=== PATIENT | female | born 1990 | race Hispanic/Latino ===

== ENCOUNTER 2022-02-18 14:20 | Emergency (ER) | payer SELFPAY ==
--- NOTE | ~2022-02-18 | CT_ITS ---
EXAMINATION: CT abdomen pelvis wo con DATE: 02/18/2022 17:09 INDICATION: eval kidney stone TECHNIQUE: Computed tomography (CT) of the abdomen and pelvis was performed without intravenous contr ast. Automated exposure control and iterative reconstruction technique were employed. The dose-length product was 574.39 mGy-cm. COMPARISON: None. FINDINGS: Lower thorax: Unremarkable Liver: Normal. Biliary/Gallbladder: Gallbladder is normal. No bile duct dilation. Pancreas: No mass or duct dilation. Spleen: Normal. Adrenals:No mass. Kidneys: No mass, stone, or hydronephrosis. GI tract: No small or large bowel dilation. Normal appendix. Mesentery/Peritoneum: No ascites, mass, or free air. Retroperitoneum: No mass. Pelvis: Bladder wall thickening and inflammation, remaining pelvic organs are within normal limits. Soft Tissues: Gluteal injection granulomas. Bones: No acute osseous finding. IMPRESSION: CT findings suggestive of cystitis. Otherwise, no acute abdominopelvic process detected. Specifically , there is no CT evidence of nephrolithiasis or obstructive uropathy. Reviewed, dictated and finalized at location K. IMPRESSION: CT findings suggestive of cystitis. Otherwise, no acute abdominopelvic process detected. Specifically, there is no CT evidence of nephrolithiasis or obstructi ve uropathy.
[2022-02-18 14:25] VITALS: BP 107/65; PULSE 68; RESP 16; TEMP 36.3; O2SAT 100
[2022-02-18 15:05] LABS: Basophils Absolute Auto 0.1 K/mm3 (0.0-0.1); Basophils Percent Auto 0.5 % (0.2-1.2); Eosinophils Absolute Auto 0.3 K/mm3 (0-0.3); Eosinophils Percent Auto 2.7 % (0-4.4); Hemoglobin 11.9 g/dL (12.0-15.0); Immature Granulocyte Absolute 0.05 K/mm3 (0.00-0.031); Immature Granulocyte Percent A 0.5 % (0-0.5); Lymphocytes Absolute Auto 3.42 K/mm3 (0.9-3.2); Lymphocytes Percent Auto 34.1 % (18.3-44.2); Mean Corpuscular HGB Conc 32.2 g/dl (32-36); Mean Corpuscular Hemoglobin 27.7 pg (26-34); Mean Corpuscular Volume 86.2 fl (80-100); Mean Platelet Volume 10.4 fl (7.4-10.4); Monocytes Absolute Auto 0.5 K/mm3 (0.1-0.6); Monocytes Percent Auto 5.4 % (2.6-8.5); Neutrophils Absolute Auto 5.7 K/mm3 (1.3-6.7); Neutrophils Percent Auto 56.8 % (45.5-73.1); Platelet Count Result 368 k/mm3 (150-375); Red Blood Count 4.29 M/mm3 (4.2-5.4); Red Cell Distribution Width 14.5 % (11.5-14.5)
[2022-02-18 15:09] LABS: Appearance Urine Clear (Clear); Bilirubin Urine Negative (Negative); Blood Urine 2+ (Negative); Color Urine Yellow (Yellow); Glucose Urine UA Negative (Negative); Ketones Urine Negative (Negative); Leukocyte Esterase Ur Negative LEU/UL (Negative); Nitrate Urine Negative (Negative); Protein Urine Negative (Negative); Specific Grav Ur 1.025 (1.001-1.035); Urobilinogen Urine 0.2 mg/dL (<2.0); pH Urine 5.5 (5.0-9.0)
[2022-02-18 15:14] LABS: Alanine Aminotransferase 28 U/L (6-35); Albumin Level 4.6 g/dL (3.5-5.1); Alkaline Phosphatase 96 U/L (38-126); Anion Gap 9 mmol/L (8-16); Aspartate Amino Transferase 28 U/L (14-36); Bilirubin,Total 0.4 mg/dL (0.2-1.3); Blood Urea Nitrogen 10 mg/dL (7-17); Calcium 8.6 mg/dL (8.4-10.2); Carbon Dioxide 26 mmol/L (22-30); Chloride 104 mmol/L (98-107); Estimated Glomerular Filt Rate > 60; Glucose 93 mg/dL (65-110); Lipase 83 U/L (23-300); Potassium 3.7 mmol/L (3.4-5.0); Sodium 139 mmol/L (137-145)
[2022-02-18 15:19] LABS: Mucus Urine Rare /lpf; Squamous Epithelial Cell Urine Occasional /hpf (Few)
[2022-02-18 15:20] LABS: Add Urine Microscopic? YES
--- NOTE | 2022-02-18 16:21 | ED.GENADULT ---
HPI - General Adult General Chief complaint: Urogenital-Female Stated complaint: chills, lower back pain, hematuria Time Seen by Provider: 02/18/22 15:51 History of Present Illness HPI narrative: Patient is Chinese speaking. [employer]imator was used. [facility] #[id number] This is a 31-year-old female with history of kidney stones presenting ED with chief complaint of lower back pain. Patient says she has been having pain for the last week It is 10/10 intensity, radiates into her left groin, and comes and goes. There are no exacerbating alleviating factors. It is associated with fever and chills. She has also had dysuria and increased urinary urgency. Patient has a history of kidney stones in the past. Related Data Allergies Allergy/AdvReac Type Severity Reaction Status Date / Time No Known Allergies Allergy Verified 02/18/22 15:46 Review of Systems Review of Systems: CONSTITUTIONAL: Denies night sweats. EYES: No eye pain ENT: Denies rhinorrhea CARDIOVASCULAR: Denies palpitations RESPIRATORY: Denies hemoptysis GASTROINTESTINAL: Denies hematemesis GENITOURINARY: Denies hematuria. SKIN: Denies rash MUSCULOSKELETAL: Denies myalgia. NEUROLOGIC: Denies weakness. PSYCHIATRIC: Denies delusions [facility] Social History Social History (Updated 02/18/22 @ 16:24 by Gómez Salgado MD) Social History: patient denies use of tobacco, drugs or alcohol Exam Narrative: APPEARANCE: No apparent distress. Head atraumatic. EYES: PERRLA/EOMI, NOSE: Normal no drainage NECK: Supple, Trachea midline RESPIRATORY: CTAB, No increased work of breathing. CARDIOVASCULAR: S1S2 appreciated ABDOMINAL: Soft, nontender, nondistended, mild tenderness to palpation on the left flank. No CVA tenderness,no guarding or rebound MUSCULOSKELETAl: No obvious deformities NEURO: Alert. Moving 4/4 extremities SKIN:: Warm, dry. Normal color PSYCHIATRIC: Normal affect Course Vital Signs Vital signs: Vital Signs Temperature 97.3 F L 02/18/22 14:25 Pulse Rate 68 02/18/22 14:25 Respiratory Rate 16 02/18/22 14:25 Blood Pressure 107/65 02/18/22 14:25 Pulse Oximetry 100 02/18/22 14:25 Oxygen Delivery Room Air 02/18/22 14:25 Temperature 97.3 F L 02/18/22 14:25 Pulse Rate 68 02/18/22 14:25 Respiratory Rate 16 02/18/22 14:25 Blood Pressure 107/65 02/18/22 14:25 Pulse Oximetry 100 02/18/22 14:25 Oxygen Delivery Room Air 02/18/22 14:25 Medical Decision Making MDM Narrative Medical decision making narrative: this is a 31-year-old Chinese-speaking female presenting ED with flank pain. She has a history of kidney stones. CT abdomen pelvis has been ordered. She has been given Toradol and [place] for pain control. Urinalysis was positive for 6-10 rbc's and 4-6 white blood cells. She is symptomatic. UTI will be treated. CT showed evidence of cystitis but no evidence of nephrolithiasis. Patient will be discharged with a course of Keflex. She can follow up with her primary care physician. Vital Signs Vital Signs: Vital Signs Temperature 97.3 F L 02/18/22 14:25 Pulse Rate 68 02/18/22 14:25 Respiratory Rate 16 02/18/22 14:25 Blood Pressure 107/65 02/18/22 14:25 Pulse Oximetry 100 02/18/22 14:25 Oxygen Delivery Room Air 02/18/22 14:25 Temperature 97.3 F L 02/18/22 14:25 Pulse Rate 68 02/18/22 14:25 Respiratory Rate 16 02/18/22 14:25 Blood Pressure 107/65 02/18/22 14:25 Pulse Oximetry 100 02/18/22 14:25 Oxygen Delivery Room Air 02/18/22 14:25 Lab Data Result diagrams: 02/18/22 14:42 02/18/22 14:42 Labs: Lab Results 02/18/22 02/18/22 02/18/22 Range/Units 14:42 14:42 14:50 WBC 10.0 (4.5-10.0) K/mm3 RBC 4.29 (4.2-5.4) M/mm3 Hgb 11.9 L (12.0-15.0) g/dL Hct 37.0 (37.0-47.0) % MCV 86.2 (80-100) fl MCH 27.7 (26-34) pg MCHC 32.2 (32-36) g/dl RDW 14.5 (11.5-14.5) % Plt Count 368
[2022-02-18] MEDS: KETOROLAC 15 MG/ML VIAL (*BKC) IV PUSH (16:54)
[2022-02-18] MEDS: HYDROcodone/acetaminophen (*CRX) 5-325 MG TABLET 2 TAB PO (16:54)
--- NOTE | 2022-02-18 16:58 | PC.NURSE ---
Pt to CT.
[2022-02-18] MEDS: CEPHALEXIN 500 MG CAPSULE PO (17:52)
[2022-02-18 17:56] VITALS: BP 97/65; PULSE 64; RESP 16; O2SAT 100
== END 2022-02-18 17:59 | disposition home or self-care (01) ==
PROVIDERS: Emergency Provider Emergency Medicine
DX: N39.0 Urinary tract infection, site not specified (principal); Z87.442 Personal history of urinary calculi
CPT/HCPCS: 36415; 74176; 80053; 81001; 81025; 83690; 85025; 96374; 99284; A9270; J1885